=== PATIENT | male | born 1955 | race Two or more races ===

== ENCOUNTER 2024-04-02 10:18 | Emergency (ER) | payer SELFPAY ==
[~2024-04-02] VITALS: Ht 170.2 cm; Wt 104.5 kg
[~2024-04-02 10:18] MED LIST: CEPH-37; METO100T87 OR
[2024-04-02 10:43] VITALS: RESP 18; O2SAT 97
[2024-04-02] MEDS: IBUPROFEN 600 MG TAB PO ONE (12:01)
[2024-04-02 12:05] VITALS: TEMP 97.3
[2024-04-02] MEDS ORDERED: IBU600T PO (12:41)
[2024-04-02 12:42] VITALS: BP 139/90; PULSE 91; RESP 16; O2SAT 97
[2024-04-02] MEDS ORDERED: ACET-6 PO (12:45)
[2024-04-02] MEDS: cloNIDine HCL 0.1 MG TAB PO ONE (12:53)
[2024-04-02 14:07] LABS: Urine Bacteria None Seen /hpf (None Seen)
[2024-04-02 14:20] LABS: Urine Blood Negative /uL (Negative); Urine Clarity Clear (Clear); Urine Color Light-Yellow (Yellow); Urine Protein, UAD 2+ (Negative); Urine Specific Gravity 1.014 (1.001-1.035); Urine Urobilinogen Normal (Negative); Urine WBC <1 /hpf (0 - 3); Urine pH 6.5 (5.0-9.0)
== END 2024-04-02 12:55 | disposition home or self-care (01) ==
LOC: EDBD 10:18 → ER 10:18
DX: I10 Essential (primary) hypertension (principal); R51.9 Headache, unspecified; M54.2 Cervicalgia; Z79.899 Other long term (current) drug therapy; Z88.5 Allergy status to narcotic agent; Y04.8XXA Assault by other bodily force, initial encounter; Y93.89 Activity, other specified; Y92.89 Other specified places as the place of occurrence of the external cause; Y99.8 Other external cause status
CPT/HCPCS: 70450; 72125; 81001